=== PATIENT | female | born 1945 | race Caucasian/White ===

== ENCOUNTER 2016-09-20 14:29 | Outpatient (CLI) | payer MEDICARE ==
[2016-09-20 15:12] LABS: ALT (SGPT) 8 U/L (0-55); AST (SGOT) 14 U/L (5-34); Alkaline Phosphatase 66 U/L (40-150); Anion Gap 15 mmol/L (10-20); BUN (Urea Nitrogen) 26 mg/dL (9.8-20.1); Bilirubin, Total 0.6 mg/dL (0.2-1.2); Calc. Creatinine Clearance 0 mL/min (70-130); Calcium 9.1 mg/dL (7.8-10.44); Carbon Dioxide 22 mmol/L (23-31); Chloride 108 mmol/L (98-107); Estimated GFR-MDRD 36; Globulin 3.1 g/dL (2.4-3.5); LDL Cholesterol, Calculated 277 mg/dL; Protein, Total 7.1 g/dL (5.8-8.1)
[2016-09-20 15:29] LABS: #Basophils 0.2 thou/uL (0.0-0.2); #Eosinphils 0.5 thou/uL (0.0-0.7); #Lymphocytes 1.9 thou/uL (1.20-3.40); #Monocytes 0.3 thou/uL (0.11-0.59); #Neutrophils 5.1 thou/uL (1.40-6.50); %Basophils 2.3 % (0.0-1.0); %Eosinophils 5.9 % (0.0-10.0); Hematocrit 44.7 % (36.0-47.0); Mean Platelet Volume 7.8 fL (7.4-10.4); Red Blood Cell (RBC) Count 4.83 mill/uL (4.20-5.40); White Blood Cell (WBC) Count 8.1 thou/uL (4.8-10.8)
[2016-09-20 15:44] LABS: Hemoglobin A1c 5.4 % (4.0-6.0)
== END 2016-09-20 14:30 | disposition home or self-care (01) ==
LOC: NAV SJFMSP 14:29
PROVIDERS: ATTEND Family Medicine
DX: Z00.00 Encounter for general adult medical examination without abnormal findings (principal); I10 Essential (primary) hypertension; E03.9 Hypothyroidism, unspecified
CPT/HCPCS: 80053; 80061; 83036; 84439; 84443; 85025

== ENCOUNTER 2018-08-13 08:38 | Outpatient (CLI) | payer MEDICARE, OTHER ==
--- NOTE | 2018-08-13 10:23 | ULT ---
ABDOMINAL AORTIC ULTRASOUND: Date: 08-13-18 History: Evaluate for abdominal aortic aneurysm. Technique: Multiplanar grayscale sonographic imaging of the abdominal aorta is obtained. Images inclu de color flow and spectral analysis. FINDINGS: Portions of the abdominal aorta are obscured by bowel gas. The midabdominal aorta measures up to 2.7 x 2.7 cm. Proximal abdominal aorta measures up to 2.0 x 2.0 cm and distal abdominal aorta measures up to 1.5 x 1.5 cm. Bilateral common iliac arteries are patent, each measuring in the 6-7 mm range. 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 No sonographic evidence of ab dominal aortic aneurysm (as defined by 3 cm or above). POS: OFF
== END 2018-08-13 08:39 | disposition home or self-care (01) ==
LOC: NAV ULT 08:38
PROVIDERS: ATTEND Family Medicine
DX: I71.4 Abdominal aortic aneurysm, without rupture (principal); I77.811 Abdominal aortic ectasia
CPT/HCPCS: 76775